=== PATIENT | female | born 1990 | race Caucasian/White ===

== ENCOUNTER → 2019-07-29 08:47 | Outpatient (POV) | payer OTHER, MEDICAID, SELFPAY ==
[2019-07-29 09:16] VITALS: BP 121/89; PULSE 82; RESP 18; O2SAT 98
--- NOTE | 2019-07-29 09:56 | XR_ITS ---
PROCEDURE: XR MULTIPLE SPINE 6+V CLINICAL INDICATION: NECK AND BACK PAIN COMPARISON: No exams were available for comparison FINDINGS: Cervical spine: There is straightening/reversal of the normal lordosis which may be due to patient positioning or muscle spasm. There is normal alignment. No fracture or dislocation. No lytic or blastic changes. The disc spaces are well preserved. No foraminal narrowing. Thoracic spine: Normal alignment. No fracture or dislocation. Minimal endplate hypertrophic change in the midthoracic spine. No lytic or blastic change IMPRESSION: 1. Reversal of lordosis otherwise negative cervical spine. 2. Minimal degenerative change midthoracic spine Dictated by: Amaury Gallardo MD 07/29/2019 11:24 Electronically signed by Amaury Gallardo MD in [place] 07/29/2019 11:24
--- NOTE | 2019-07-30 10:49 | HMH.PMCON ---
Assessment and Plan (1) Degenerative disc disease, cervical Current visit: Yes Status: Chronic Category: Medical Code(s): M50.30 - Other cervical disc degeneration, unspecified cervical region (2) Degenerative disc disease, lumbar Current visit: Yes Status: Chronic Category: Medical Code(s): M51.36 - Other intervertebral disc degeneration, lumbar region (3) Degenerative disc disease, thoracic Current visit: Yes Status: Chronic Category: Medical Code(s): M51.34 - Other intervertebral disc degeneration, thoracic region - Assessment and plan all Dx Assessment and Plan for all problems:: Patient would like to hold off on any more injective therapy at this time. We will order x-rays of the cervical and thoracic spine we will also start her on Lyrica 75 mg 1 p.o. twice daily we will follow-up with her in 2 weeks reassess her symptoms at that time she is been instructed to call the office if she has any issues prior to her next appointment. Dr. Doe has reviewed this note and agrees with this plan of care. This note was dictated using voice recognition software and may contain errors or omissions HPI - Data of Consult Consult date: 07/29/19 Requesting Physician: Maribeth Matute APRN Primary Care Provider: Nigel Pillai - Consult Narrative Reason for consult: Back pain, arm pain, neck pain History of present illness: Ms. Daniel is a 29 year old female who is transferring from our [facility] to this clinic. Patient received an epidural at the L1-L2 level she had some in increased pain and swelling afterwards. Patient was put on a oral steroid and this is resolved. Patient states that her lower back pain is doing better however her thoracic back and her neck are causing quite a bit of issue for her. Patient is unable to tolerate oral narcotic medications and is not interested in this. Patient also would like to hold off on injection therapy at this time. Patient does not have any current diagnostic imaging of her cervical or thoracic spine. Will order x-rays for her today. She rates her pain today a 6 out of 10. She is 18 continue to work. The pain began when she was unloading a truck several months ago. She is completed physical therapy with no success. She is tried and failed Lexapro Celexa Wellbutrin. Patient has not tried gabapentin or Lyrica. CC: Maribeth Matute APRN [facility] History I have reviewed the patient's past medical history: Yes *Have you ever received a pneumonia vaccine?: Yes *Have you received a flu vaccine this season?: Yes Other Surgeries: Yes: Colonoscopy, - *Social History Smoking Status: Current every day smoker Tobacco Type: cigarettes # Packs/Day (cigarettes): 1 Alcohol Intake: never *Occupational Status:: other Housing: house Household Members: other *Travel in the last 8 weeks: None Family Hx:: Unable to obtain Review of Systems - Review of Systems ROS General: no recent weight change, no fever, no sleep disturbances Respiratory: no cough, no shortness of air, no recurring pulmonary infections Cardiovascular/Peripheral Vascular: No chest pain, No palpitations, no edema, no shortness of breath. Gastrointestinal: no incontinence, normal bowel movements reported Genitourinary: no incontinence Musculoskeletal: Neck pain, back pain, arm pain Psychiatric: normal mood/ affect, Neurological: [denies weakness in extremities], [denies balance issues] Objective Vital signs: Pulse Resp BP Pulse Ox 82 18 121/89 98 07/29/19 09:16 07/29/19 09:16 07/29/19 09:16 07/29/19 09:16 Narrative: Physical Exam General: Alert and oriented x3, no acute distress, pleasant and cooperative, [on room air] Lungs: Resps E/U, Symmetrical chest expansion, [CTA bilateral] Eyes: PERRL Musculoskeletal: Flexion and extension of cervical thoracic and lumbar spine somewhat guarded secondary to pain, deep tendon reflexes normal, strength
--- NOTE | 2019-07-30 10:53 | P.CONS_ITS ---
Assessment and Plan (1) Degenerative disc disease, cervical Current visit: Yes Status: Chronic Category: Medical Code(s): M50.30 - Other cervical disc degeneration, unspecified cervical region (2) Degenerative disc disease, lumbar Current visit: Yes Status: Chronic Category: Medical Code(s): M51.36 - Other intervertebral disc degeneration, lumbar region (3) Degenerative disc disease, thoracic Current visit: Yes Status: Chronic Category: Medical Code(s): M51.34 - Other intervertebral disc degeneration, thoracic region - Assessment and plan all Dx Assessment and Plan for all problems:: Patient would like to hold off on any more injective therapy at this time. We will order x-rays of the cervical and thoracic spine we will also start her on Lyrica 75 mg 1 p.o. twice daily we will follow-up with her in 2 weeks reassess her symptoms at that time she is been instructed to call the office if she has any issues prior to her next appointment. Dr. Doe has reviewed this note and agrees with this plan of care. This note was dictated using voice recognition software and may contain errors or omissions HPI - Data of Consult Consult date: 07/29/19 Requesting Physician: Maribeth Matute APRN Primary Care Provider: Nigel Pillai - Consult Narrative Reason for consult: Back pain, arm pain, neck pain History of present illness: Ms. Daniel is a 29 year old female who is transferring from our [facility] to this clinic. Patient received an epidural at the L1-L2 level she had some in increased pain and swelling afterwards. Patient was put on a oral steroid and this is resolved. Patient states that her lower back pain is doing better however her thoracic back and her neck are causing quite a bit of issue for her. Patient is unable to tolerate oral narcotic medications and is not interested in this. Patient also would like to hold off on injection therapy at this time. Patient does not have any current diagnostic imaging of her cervical or thoracic spine. Will order x-rays for her today. She rates her pain today a 6 out of 10. She is 18 continue to work. The pain began when she was unloading a truck several months ago. She is completed physical therapy with no success. She is tried and failed Lexapro Celexa Wellbutrin. Patient has not tried gabapentin or Lyrica. CC: Maribeth Matute APRN [facility] History I have reviewed the patient's past medical history: Yes *Have you ever received a pneumonia vaccine?: Yes *Have you received a flu vaccine this season?: Yes Other Surgeries: Yes: Colonoscopy, - *Social History Smoking Status: Current every day smoker Tobacco Type: cigarettes # Packs/Day (cigarettes): 1 Alcohol Intake: never *Occupational Status:: other Housing: house Household Members: other *Travel in the last 8 weeks: None Family Hx:: Unable to obtain Review of Systems - Review of Systems ROS General: no recent weight change, no fever, no sleep disturbances Respiratory: no cough, no shortness of air, no recurring pulmonary infections Cardiovascular/Peripheral Vascular: No chest pain, No palpitations, no edema, no shortness of breath. Gastrointestinal: no incontinence, normal bowel movements reported Genitourinary: no incontinence Musculoskeletal: Neck pain, back pain, arm pain Psychiatric: normal mood/ affect, Neurological: [denies weakness in extremities], [denies balance issues] Objective Vital signs: Pulse Resp BP Pulse Ox
== END ==
PROVIDERS: PCP Family Medicine; Visit Provider Clinical Nurse Specialist Family Health
DX: M50.30 Other cervical disc degeneration, unspecified cervical region (principal); M51.36 Other intervertebral disc degeneration, lumbar region; M51.34 Other intervertebral disc degeneration, thoracic region
CPT/HCPCS: 72084; 99202

== ENCOUNTER → 2019-08-12 08:24 | Outpatient (POV) | payer OTHER, SELFPAY ==
[2019-08-12 08:54] VITALS: BP 141/78; PULSE 75; RESP 18; O2SAT 98; BMI 29.8
--- NOTE | 2019-08-12 10:28 | P.CONS_ITS ---
[facility] Pain Management SOAP Note Subjective:: She is a pleasant 29-year-old white female who presents today for follow-up. Patient was unable to tolerate the Lyrica she states it was unhelpful as well. She rates her pain today a 7 out of 10. Patient's main pain is in her thoracic spine on the right side. She does have positive facet loading. Patient had an epidural injection however she did not tolerate it well and it was not beneficial for her. Patient and I discussed a medial branch block/facet joint injection she is interested in pursuing this. She may be a neurotomy candidate. She does have a positive Kemps test and facet loading of the thoracic spine on the right side I did discuss the diagnostic nature of the injection and she understands this. Patient does have degenerative changes in the thoracic spine. She does not have any current infection. She is not on any anticoagulation therapy. She is continuing a home stretching program and has completed physical therapy in the past. She is had pain for over 6 months. ROS General: no recent weight change, no fever, no sleep disturbances Respiratory: no cough, no shortness of air, no recurring pulmonary infections Cardiovascular/Peripheral Vascular: No chest pain, No palpitations, no edema, no shortness of breath. Gastrointestinal: no incontinence, normal bowel movements reported Genitourinary: no incontinence Musculoskeletal: Thoracic back pain Psychiatric: normal mood/ affect Neurological: [denies weakness in extremities], [denies balance issues] Objective:: ROS General: no recent weight change, no fever, no sleep disturbances Respiratory: no cough, no shortness of air, no recurring pulmonary infections Cardiovascular/Peripheral Vascular: No chest pain, No palpitations, no edema, no shortness of breath. Gastrointestinal: no incontinence, normal bowel movements reported Genitourinary: no incontinence Musculoskeletal: Thoracic back pain Psychiatric: normal mood/ affect, Neurological: [denies weakness in extremities], [denies balance issues] Assessment:: Facet arthropathy Plan:: We will plan a right sided T6-T7 T7-T8 T8-T9 medial branch block. Patient understands the diagnostic nature and that she may be a neurotomy candidate I will follow-up with the patient after this reassess her symptoms at that time she is been instructed to call the office if she has any issues prior to her next appointment. Dr. Doe has reviewed this note and agrees with this plan of care. This note was dictated using voice recognition software and may contain errors or omissions [facility] History I have reviewed the patient's past medical history: Yes *Have you ever received a pneumonia vaccine?: No *Have you received a flu vaccine this season?: No Other Surgeries: Yes: Colonoscopy, - *Social History Smoking Status: Current every day smoker Tobacco Type: cigarettes # Packs/Day (cigarettes): 1 Alcohol Intake: never *Occupational Status:: other Housing: house Household Members: other *Travel in the last 8 weeks: None Family Hx:: Unable to obtain
== END ==
PROVIDERS: PCP Family Medicine; Visit Provider Clinical Nurse Specialist Family Health
DX: M54.04 Panniculitis affecting regions of neck and back, thoracic region (principal)
CPT/HCPCS: 99212

== ENCOUNTER → 2019-11-18 14:42 | Outpatient (POV) | payer OTHER, SELFPAY ==
[2019-11-18 15:30] VITALS: BP 129/64; PULSE 69; RESP 18; O2SAT 98; BMI 27.4
--- NOTE | 2019-11-19 09:02 | HMH.PAINSOAP ---
[facility] Pain Management SOAP Note Subjective:: Patient is a pleasant 29-year-old white female who presents today for follow-up. Patient has terrible thoracic pain. I am concerned she may have some facet outlet syndrome given her symptomology. Patient needs an MRI of her thoracic spine. Most of her pain is in her upper back. Patient is now having difficulty breathing at times due to pain. She is had epidural injections with no success. She has had this pain for over 6 months. She is tried and failed medications, anti-inflammatories she is unable to take gabapentin or Lyrica due to side effects. She rates her pain today a 5 out of 10 but any movement makes it worse. She has positive facet loading thoracic spine on the right side ROS General: no recent weight change, no fever, no sleep disturbances Respiratory: no cough, no shortness of air, no recurring pulmonary infections Cardiovascular/Peripheral Vascular: No chest pain, No palpitations, no edema, no shortness of breath. Gastrointestinal: no new onset incontinence, normal bowel movements reported Genitourinary: no new onset incontinence Musculoskeletal: Thoracic back pain Psychiatric: normal mood/ affect Neurological: [denies new onset weakness in extremities], [denies new onset balance issues] Objective:: Physical Exam General: Alert and oriented x3, no acute distress, pleasant and cooperative, [on room air] Lungs: Resps E/U, Symmetrical chest expansion, Eyes: PERRL Musculoskeletal: Flexion and extension of thoracic spine somewhat guarded secondary to pain, deep tendon reflexes normal, strength in upper and lower extremities [5/5], normal gait noted Neurological: speech clear, machine puller and laster equal, no gross sensory deficits Assessment:: Thoracic back pain, degenerative disc disease, facet arthropathy Plan:: Patient's pain is getting increasingly worse I am quite concerned in regards to this. We will send her for a thoracic MRI. I will follow-up with her after this reassess her symptoms at that time she is been instructed to call the office if she has any issues prior to her next appointment. Dr. Doe has reviewed this note and agrees with this plan of care. This note was dictated using voice recognition software and may contain errors or omissions [facility] History I have reviewed the patient's past medical history: Yes *Have you ever received a pneumonia vaccine?: Yes *Have you received a flu vaccine this season?: Yes Other Surgeries: Yes: Colonoscopy, - *Social History Smoking Status: Current every day smoker Tobacco Type: cigarettes # Packs/Day (cigarettes): 1 Alcohol Intake: never *Occupational Status:: other Housing: house Household Members: other *Travel in the last 8 weeks: None Family Hx:: Unable to obtain
== END ==
PROVIDERS: PCP Family Medicine; Visit Provider Clinical Nurse Specialist Family Health
DX: M51.34 Other intervertebral disc degeneration, thoracic region (principal); M54.04 Panniculitis affecting regions of neck and back, thoracic region; Z72.0 Tobacco use
CPT/HCPCS: 99212

== ENCOUNTER → 2019-12-03 16:03 | Outpatient (CLI) | payer OTHER, SELFPAY ==
--- NOTE | 2019-12-03 16:11 | MR_ITS ---
PROCEDURE: MR THORACIC SPINE WO CON CLINICAL INDICATION: MID BACK PAIN COMPARISON: XR MULTIPLE SPINE 6+V from 07/29/2019 TECHNIQUE: Routine multiplanar multi echo sequences are performed without gadolinium enhancement. FINDINGS: There is normal alignment. No fracture or dislocation evident. There is decrease in the disc space from T5 to T11 with some minimal endplate irregularity from T5-T9 consistent with vertebral endplate osteochondrosis/Scheuermann's disease. There is a faint linear area of decreased T1 signal involving the inferior and anterior aspect of T8 consistent with a nondisplaced fracture with some increased T2 signal at this region. There is a small left foraminal disc protrusion at T10-T11 causing mild left foraminal narrowing. No extruded herniated disc are evident. No canal stenosis. The cord has an unremarkable appearance. There is a small central disc herniation at C5-C6 seen on the edge of the imaging field and may be better evaluated with cervical spine MRI. There is narrowing of the canal at this level due to this disc herniation at 9 mm IMPRESSION: 1. There is decrease in the disc space from T5 to T11 with some minimal endplate irregularity from T5-T9 consistent with vertebral endplate osteochondrosis/Scheuermann's disease. 2. Nondisplaced fracture involving the inferior endplate of T8 3. Small left foraminal disc protrusion at T10-T11 4. There is a small central disc herniation at C5-C6 seen on the edge of the imaging field and may be better evaluated with cervical spine MRI. There is narrowing of the canal at this level due to this disc herniation at 9 mm Dictated by: Amaury Gallardo MD 12/05/2019 05:45 Electronically signed by Amaury Gallardo MD in [place] 12/05/2019 05:45
== END ==
PROVIDERS: PCP Family Medicine; Visit Provider Clinical Nurse Specialist Family Health
DX: M54.6 Pain in thoracic spine (principal)
CPT/HCPCS: 72146

== ENCOUNTER → 2020-01-02 09:03 | Outpatient (POV) | payer OTHER, SELFPAY ==
[2020-01-02 09:20] VITALS: BP 149/74; PULSE 78; RESP 18; O2SAT 98
--- NOTE | 2020-01-02 09:42 | HMH.PAINSOAP ---
[facility] Pain Management SOAP Note Subjective:: Patient is a pleasant 29-year-old white female who presents today for follow-up. She is being treated for neck, mid back and low back pain. Patient says that her pain is progressively getting worse. She recently underwent an MRI of her thoracic spine. She is here today to discuss the results of her imaging. Patient rates her pain a 9 out of 10. She says her pain is worse when she is standing. She says the pain is relieved when she leans forward. She says the pain does radiate from her mid back area into her bilateral flank area and into her chest area. She says that the pain has been ongoing for more than 6 months. She has tried and failed oral medications of anti-inflammatories. The patient is on Suboxone and cannot take opiates. She has also tried Lyrica and gabapentin, however she was unable to take these medicines due to the side effects. She has had injections in the past and says that she got approximately 85% relief following the injection for up to a month. She would like to discuss options for pain relief as well today. Review of Systems General: No recent weight changes, no fever, no sleep disturbances Respiratory: No cough, no shortness of air, no recurring pulmonary infections Cardiovascular/peripheral vascular: No chest pain, no palpitations, no edema, no shortness of breath Gastrointestinal: No new onset incontinence, normal bowel movements reported Genitourinary: No new onset incontinence Musculoskeletal: Mid back pain, bilateral flank pain, chest pain Psychiatric: Normal mood/affect Neurological: [Denies weakness in extremities], [denies balance issues] Objective:: Physical exam General: Alert and oriented x3, no acute distress, pleasant and cooperative, [on room air] Lungs: Respirations even and unlabored, symmetrical chest expansion Eyes: PERRL Musculoskeletal: Flexion and extension of thoracic spine somewhat guarded secondary to pain, deep tendon reflexes normal, strength in upper and lower extremities [5/5], normal gait noted Neurological: Speech clear, formation fracturing operator equal, no gross sensory deficit Assessment:: Thoracic back pain, degenerative disc disease Plan:: The patient has had an epidural in the past and says that she has gotten relief following the injection. I did discuss with the patient spinal cord stimulation, however, she does say that her says she is not going to be hooked up like a car battery . I did give her educational information concerning the spinal cord stimulator. I also discussed intrathecal therapy, with the use of bupivacaine. I did discuss, however, if bupivacaine was not effective for the patient that most other medications that would be approved for her insurance would be opiate. Patient would like to discuss her options with her . At this time, however, she would like to proceed with a thoracic epidural steroid injection. We will schedule her for the injection at T10-T11. She is not on any anticoagulation therapy. We will see her back in clinic after her injection to reassess her symptoms. The patient is performing a home stretching program. She has tried and failed physical therapy for greater than 6 weeks. She has also tried and failed ice and heat therapies. Patient's been instructed to contact the clinic if she has any concerns before next appointment. Dr. Doe has reviewed this note and agrees with this plan of care. This note was dictated using voice recognition software and make contain errors or omissions. [facility] History I have reviewed the patient's past medical history: Yes *Have you ever received a pneumonia vaccine?: Yes *Have you received a flu vaccine this season?: Yes Other Surgeries: Yes: Colonoscopy, - *Social History Smoking Status: Current every day smoker Tobacco Type: cigarettes # Packs/Day (cigarettes): 1 Alcohol Intake: never *Occupational Status:: other Housing: house [place]
== END ==
PROVIDERS: PCP Family Medicine; Visit Provider Clinical Nurse Specialist Family Health
DX: M51.34 Other intervertebral disc degeneration, thoracic region (principal)
CPT/HCPCS: 99212